=== PATIENT | female | born 1970 | race Caucasian/White ===

== ENCOUNTER 2018-09-19 20:15 | Emergency (ER) | payer MEDICAID ==
[~2018-09-19] VITALS: Ht 154.9 cm; Wt 50.0 kg
[2018-09-20 00:17] LABS: APPEARANCE,URINE CLOUDY (CLEAR); BILIRUBIN,URINE NEGATIVE (NEGATIVE); GLUCOSE, URINE (UA) NEGATIVE (NEGATIVE); KETONES,URINE NEGATIVE (NEGATIVE); LEUKOCYTE ESTERASE ,URINE NEGATIVE (NEGATIVE); NITRATE,URINE POSITIVE (NEGATIVE); OCCULT BLOOD,URINE NEGATIVE (NEGATIVE); PH,URINE 6.5 (5.0-8.0); PROTEIN,URINE NEGATIVE (NEGATIVE)
[2018-09-20 00:27] LABS: BACTERIA,URINE Many /HPF (None Seen); RBC,URINE 0-2 /HPF (0-2); SQUAMOUS EPITHELIAL CELL,UR Few /LPF (None Seen); WBC,URINE 0-2 /HPF (0-5)
[2018-09-20] MEDS ORDERED: MetroNIDAZOLE 250 MG TABLET PO ONE (00:45)
[2018-09-20 00:54] VITALS: BP 120/80
== END 2018-09-20 00:55 | disposition home or self-care (01) ==
LOC: EMS 20:21
DX: T19.2XXA Foreign body in vulva and vagina, initial encounter (principal); F17.210 Nicotine dependence, cigarettes, uncomplicated; X58.XXXA Exposure to other specified factors, initial encounter; Y93.89 Activity, other specified; Y92.89 Other specified places as the place of occurrence of the external cause; Y99.8 Other external cause status
CPT/HCPCS: 87086